=== PATIENT | female | born 1980 | race Caucasian/White ===

== ENCOUNTER 2016-12-25 17:19 | Emergency (ER) | payer SELFPAY ==
[~2016-12-25] VITALS: Ht 157.5 cm; Wt 54.0 kg
[2016-12-25 17:21] VITALS: BP 138/77; PULSE 80; RESP 20; TEMP 98.7; O2SAT 98
--- NOTE | 2016-12-25 17:27 | PD ---
Physical Exam Time Seen by Provider: 17:25 Narrative 36yo F c/o having flu-like symptoms for a week and started vomiting this morning. +Nausea, stomach cramping. Subjective fevers w/ chills. Patient seen in triage. VS reviewed. Awaiting bed placement. Data Data Last Documented VS Vital Signs Date Time Temp Pulse Resp B/P (MAP) Pulse Ox O2 Delivery O2 Flow Rate FiO2 12/25/16 17:21 98.7 80 20 138/77 (97) 98 MDM Supervised Visit with ABIMAEL: Patito Flores Dec 25, 2016 17:27
[2016-12-25] MEDS ORDERED: SODIUM CHLOR 0.9% 1000 ML INJ 1,000 ML IV SCH (17:40)
--- NOTE | 2016-12-25 17:40 | PD ---
HPI Chief Complaint: GI Complaint Time Seen by Provider: 17:39 Travel History International Travel<30 days: No Contact w/Intl Traveler<30days: No Traveled to known affect area: No History of Present Illness HPI 36 year-old female presents to emergency department for evaluation of flulike symptoms, aches, nausea, vomiting with loose stools. Patient denies any hematemesis or hematochezia. She denies any urinary symptoms. No abdominal pain. Symptoms started a week ago, but n/v/d started yesterday states there is possibility of . Her last menstrual cycle was December 10. Denies any vaginal bleeding or discharge. Has no other symptoms to report.. PFSH Past Medical History Medical History: Denies Significant Hx ?: Not LMP: 12/10/16 Social History Alcohol Use: No Tobacco Use: No Substance Use: No Allergies-Medications (Allergen,Severity, Reaction): Coded Allergies: codeine (Verified Allergy, Severe, RASH, 12/25/16) Sulfa (Sulfonamide Antibiotics) (Verified Allergy, Unknown, 12/25/16) penicillin G (Verified Allergy, Unknown, 12/25/16) Reported Meds & Prescriptions Reported Meds & Active Scripts Active Zofran Odt (Ondansetron Odt) 4 Mg Tab 4 Mg SL Q6HR PRN Review of Systems Except as stated in HPI: all other systems reviewed are Neg Physical Exam Narrative GENERAL: Well-nourished female patient, ambulatory and in no acute distress. SKIN: Focused skin assessment warm/dry. HEAD: Atraumatic. Normocephalic. EYES: Pupils equal and round. No scleral icterus. No injection or drainage. ENT: No nasal bleeding or discharge. Mucous membranes pink and moist. NECK: Trachea midline. No JVD. CARDIOVASCULAR: Regular rate and rhythm. No murmur appreciated. RESPIRATORY: No accessory muscle use. Clear to auscultation. Breath sounds equal bilaterally. GASTROINTESTINAL: Abdomen soft, non-tender, nondistended. Hepatic and splenic margins not palpable. MUSCULOSKELETAL: No obvious deformities. No clubbing. No cyanosis. No edema. NEUROLOGICAL: Awake and alert. No obvious cranial nerve deficits. Motor grossly within normal limits. Normal speech. PSYCHIATRIC: Appropriate mood and affect; insight and judgment normal. Data Data Last Documented VS Vital Signs Date Time Temp Pulse Resp B/P (MAP) Pulse Ox O2 Delivery O2 Flow Rate FiO2 8/24/17 21:06 70 15 110/69 (83) 100 12/25/16 20:22 Room Air 12/25/16 17:21 98.7 Orders Orders Complete Blood Count With Diff (12/25/16 17:40) Comprehensive Metabolic Panel (12/25/16 17:40) Lipase (12/25/16 17:40) Prothrombin Time / Inr (Pt) (12/25/16 17:40) Act Partial Throm Time (Ptt) (12/25/16 17:40) Urinalysis - C+S If Indicated (12/25/16 17:40) Iv Access Insert/Monitor (12/25/16 17:40) Ecg Monitoring (12/25/16 17:40) Oximetry (12/25/16 17:40) Sodium Chlor 0.9% 1000 Ml Inj (Ns 1000 M (12/25/16 17:40) Sodium Chloride 0.9% Flush (Ns Flush) (12/25/16 17:45) Chest, Single Ap (12/25/16 17:40) Ed Urine Pregnancytest Poc (12/25/16 17:40) Ondansetron Inj (Zofran Inj) (12/25/16 18:15) Sodium Chlor 0.9% 1000 Ml Inj (Ns 1000 M (12/25/16 19:30) Prochlorperazine Inj (Compazine Inj) (12/25/16 19:30) Diphenhydramine Inj (Benadryl Inj) (12/25/16 19:30) Labs Laboratory Tests Test 12/25/16 17:45 12/25/16 18:40 White Blood Count 13.0 TH/MM3 Red Blood Count 5.07 MIL/MM3 Hemoglobin 15.2 GM/DL Hematocrit 44.7 % Mean Corpuscular Volume 88.2 FL Mean Corpuscular Hemoglobin 30.1 PG Mean Corpuscular Hemoglobin Concent 34.1 % Red Cell Distribution Width 12.9 % Platelet Count 289 TH/MM3 Mean Platelet Volume 7.8 FL Neutrophils (%) (Auto) 85.7 % Lymphocytes (%) (Auto) 6.6 % Monocytes (%) (Auto) 6.6 % Eosinophils (%) (Auto) 1.0 % Basophils (%) (Auto) 0.1 % Neutrophils # (Auto) 11.2 TH/MM3 Lymphocytes # (Auto) 0.9 TH/MM3 Monocytes # (Auto) 0.9 TH/MM3 Eosinophils # (Auto) 0.1 TH/MM3 Basophils # (Auto) 0.0 TH/MM3 CBC Comment DIFF FINAL Differential Comment Prothrombin Time 10.5 SEC Prothromb Time International Ratio 1.0 RATIO Activated Partial Thromboplast Time 26.2 SEC Blood Urea Nitrogen 15 MG/DL Creatinine 0.84 MG/DL Random Glucose 95 MG/DL Total Protein 7.3 GM/DL Albumin 3.9 GM/DL Calcium Level 8.9 MG/DL Alkaline Phosphatase 72 U/L Aspartate Amino Transf (AST/SGOT) 18 U/L Alanine Aminotransferase (ALT/SGPT) 20 U/L Total Bilirubin 0.6 MG/DL Sodium Level 138 MEQ/L Potassium Level 3.7 MEQ/L Chloride Level 106 MEQ/L Carbon Dioxide Level 24.8 MEQ/L Anion Gap 7 MEQ/L Estimat Glomerular Filtration Rate 77 ML/MIN Lipase 101 U/L Urine Color YELLOW Urine Turbidity HAZY Urine pH 8.5 Urine Specific Kerrick 1.023 Urine Protein 30 mg/dL Urine Glucose (UA) NEG mg/dL Urine Ketones 40 mg/dL Urine Occult Blood NEG Urine Nitrite NEG Urine Bilirubin NEG Urine Urobilinogen LESS THAN 2.0 MG/DL Urine Leukocyte Esterase NEG Urine RBC LESS THAN 1 /hpf Urine WBC 1 /hpf Urine Squamous Epithelial Cells 11 /hpf Urine Bacteria RARE /hpf Urine Mucus FEW /lpf Microscopic Urinalysis Comment CULT NOT INDICATED MDM Medical Decision Making Medical Screen Exam Complete: Yes Emergency Medical Condition: Yes Medical Record Reviewed: Yes Differential Diagnosis Gastroenteritis versus gastritis versus pancreatitis versus cholecystitis Narrative Course 36-year-old female presents to emergency department for evaluation. Patient appears without distress. She feels nauseous but is not vomiting here. She is given Zofran and IV fluids. Her is negative. Laboratory Tests Test 12/25/16 17:45 12/25/16 18:40 White Blood Count 13.0 TH/MM3 Red Blood Count 5.07 MIL/MM3 Hemoglobin 15.2 GM/DL Hematocrit 44.7 % Mean Corpuscular Volume 88.2 FL Mean Corpuscular Hemoglobin 30.1 PG Mean Corpuscular Hemoglobin Concent 34.1 % Red Cell Distribution Width 12.9 % Platelet Count 289 TH/MM3 Mean Platelet Volume 7.8 FL Neutrophils (%) (Auto) 85.7 % Lymphocytes (%) (Auto) 6.6 % Monocytes (%) (Auto) 6.6 % Eosinophils (%) (Auto) 1.0 % Basophils (%) (Auto) 0.1 % Neutrophils # (Auto) 11.2 TH/MM3 Lymphocytes # (Auto) 0.9 TH/MM3 Monocytes # (Auto) 0.9 TH/MM3 Eosinophils # (Auto) 0.1 TH/MM3 Basophils # (Auto) 0.0 TH/MM3 CBC Comment DIFF FINAL Differential Comment Prothrombin Time 10.5 SEC Prothromb Time International Ratio 1.0 RATIO Activated Partial Thromboplast Time 26.2 SEC Blood Urea Nitrogen 15 MG/DL Creatinine 0.84 MG/DL Random Glucose 95 MG/DL Total Protein 7.3 GM/DL Albumin 3.9 GM/DL Calcium Level 8.9 MG/DL Alkaline Phosphatase 72 U/L Aspartate Amino Transf (AST/SGOT) 18 U/L Alanine Aminotransferase (ALT/SGPT) 20 U/L Total Bilirubin 0.6 MG/DL Sodium Level 138 MEQ/L Potassium Level 3.7 MEQ/L Chloride Level 106 MEQ/L Carbon Dioxide Level 24.8 MEQ/L Anion Gap 7 MEQ/L Estimat Glomerular Filtration Rate 77 ML/MIN Lipase 101 U/L Urine Color YELLOW Urine Turbidity HAZY Urine pH 8.5 Urine Specific Kerrick 1.023 Urine Protein 30 mg/dL Urine Glucose (UA) NEG mg/dL Urine Ketones 40 mg/dL Urine Occult Blood NEG Urine Nitrite NEG Urine Bilirubin NEG Urine Urobilinogen LESS THAN 2.0 MG/DL Urine Leukocyte Esterase NEG Urine RBC LESS THAN 1 /hpf Urine WBC 1 /hpf Urine Squamous Epithelial Cells 11 /hpf Urine Bacteria RARE /hpf Urine Mucus FEW /lpf Microscopic Urinalysis Comment CULT NOT INDICATED Upon reassessment, patient does verbalize improvement in her symptoms. She is counseled on care discharged home to follow-up with primary care provider. She agrees to return immediately with any acute worsening symptoms. Diagnosis Primary Impression: Gastroenteritis Referrals: Primary Care Physician Patient Instructions: Gastroenteritis (ED), General Instructions Additional Instructions: Maintain adequate oral hydration Avoid abrasive and acidic foods Clear liquid diet, advance as tolerated Return immediately to the emergency department with any acute worsening of symptoms Med/Other Pt SpecificInfo: Prescription(s) given Scripts Ondansetron Odt (Zofran Odt) 4 Mg Tab 4 MG SL Q6HR Y for Nausea/Vomiting, #15 TAB 0 Refills Prov: Lore Baeza 12/25/16 Disposition: 01 DISCHARGE HOME Condition: Stable Lore Baeza Dec 25, 2016 17:40
[2016-12-25 17:44] VITALS: O2SAT 99
[2016-12-25] MEDS ORDERED: SODIUM CHLORIDE 0.9% FLUSH 10 ML FLUSH IV FLUSH PRN (17:45)
--- NOTE | 2016-12-25 17:59 | RADRPT ---
EXAM DATE/TIME: 12/25/2016 17:58 [facility] COMPARISON: No previous studies available for comparison. INDICATIONS : Cough and vomiting. MEDICAL HISTORY : None. SURGICAL HISTORY : None. ENCOUNTER: Initial ACUITY: 2 weeks PAIN SCORE: 0/10 LOCATION: Bilateral chest FINDINGS: Portable AP view of the chest demonstrates a normal-sized cardiac silhouette. No effusion, consolidat ion, or pneumothorax is visualized. The bones and soft tissues demonstrate no acute abnormality. CONCLUSION: No acute cardiopulmonary abnormality is identified. Shad Patel MD on December 25, 2016 at 17:56 Board Certified Radiologist. This report was verified electronically.
[2016-12-25 18:08] LABS: AUTOMATED NEUTROPHIL # 11.2 TH/MM3 (1.8-7.7); BASOPHIL % 0.1 % (0.0-2.0); EOSINOPHIL # 0.1 TH/MM3 (0-0.4); HEMATOCRIT 44.7 % (35.0-46.0); HEMO FLAGS DIFF FINAL; LYMPH % 6.6 % (9.0-44.0); LYMPHOCYTE # 0.9 TH/MM3 (1.0-4.8); MEAN CELL VOLUME 88.2 FL (80.0-100.0); MEAN CORPUSCULAR HEMOGLOBIN 30.1 PG (27.0-34.0); MEAN CORPUSCULAR HGB CONC 34.1 % (32.0-36.0); MONO % 6.6 % (0.0-8.0); NEUT % 85.7 % (16.0-70.0); PLATELET COUNT 289 TH/MM3 (150-450); RED BLOOD COUNT 5.07 MIL/MM3 (4.00-5.30); RED CELL DISTRIBUTION WIDTH 12.9 % (11.6-17.2)
[2016-12-25 18:15] LABS: APTT (PATIENT) 26.2 SEC (24.3-30.1); PROTHROMBIN TIME - PATIENT 10.5 SEC (9.8-11.6)
[2016-12-25] MEDS ORDERED: ONDANSETRON HCL 4 MG/2 ML VIAL IV PUSH ONE (18:15)
[2016-12-25 18:28] LABS: ANION GAP 7 MEQ/L (5-15); AST (GOT) 18 U/L (15-37); BICARBONATE 24.8 MEQ/L (21.0-32.0); BLOOD UREA NITROGEN 15 MG/DL (7-18); CHLORIDE 106 MEQ/L (98-107); GLOMERULAR FILTRATION RATE 77 ML/MIN (>89); POTASSIUM 3.7 MEQ/L (3.5-5.1); SODIUM (NA) 138 MEQ/L (136-145)
[2016-12-25 18:29] LABS: ALT (GPT) 20 U/L (10-53)
[2016-12-25 18:32] LABS: ALKALINE PHOSPHATASE 72 U/L (45-117); TOTAL BILIRUBIN ADULT 0.6 MG/DL (0.2-1.0)
[2016-12-25 19:09] LABS: BACTERIA, URINE RARE /hpf; BLOOD, URINE NEG (NEG); COMMENT (UR) CULT NOT INDICATED; CULTURE IF INDICATED CULT NOT INDICATED; GLUCOSE,URINE NEG (NEG); KETONE, URINE 40 mg/dL (NEG); MUCUS URINE FEW /lpf (OCC); NITRITE,URINE NEG (NEG); PH, URINE 8.5 (5.0-8.5); SQUAMOUS EPITHELIAL CELL URINE 11 /hpf (0-5); URINE COLOR YELLOW (YELLW/STRAW)
[2016-12-25] MEDS ORDERED: PROCHLORPERAZINE INJ 10 MG/2 ML VIAL IV PUSH ONE (19:30)
[2016-12-25] MEDS ORDERED: SODIUM CHLOR 0.9% 1000 ML INJ 1,000 ML IV ONE (19:30)
[2016-12-25] MEDS ORDERED: diphenhydrAMINE HCL 50 MG/ML VIAL IV PUSH ONE (19:30)
[2016-12-25] MEDS ORDERED: ZOFR4TAB3 SL (20:18)
[2016-12-25 20:22] VITALS: BP 106/67; PULSE 70; RESP 16; O2SAT 100
[2016-12-25 21:06] VITALS: BP 110/69
== END 2016-12-25 21:18 | disposition home or self-care (01) ==
LOC: NEPC 17:19
DX: K52.9 Noninfective gastroenteritis and colitis, unspecified (principal)
CPT/HCPCS: 71010; 80053; 81001; 83690; 84703; 85025; 85610; 85730; 96361; 96374; 96375; 99284; J0780; J1200; J2405; J7030